=== PATIENT | female | born 1980 | race African-American/Black ===

== ENCOUNTER 2022-07-15 13:16 | Outpatient (CLI) | payer BC, SELFPAY ==
--- NOTE | ~2022-07-15 | US_ITS ---
Pelvic ultrasound. Clinical History: Heavy menses Technique: Realtime transabdominal and transvaginal scanning of the pelvis was performed. Color flow Doppler and Doppler spectral analysis were performed. Findings: The uterus is anteverted. The endometrial stripe has a thickness of 10 mm. Probable ill-de fined lower uterine segment fibroid measures 1.7 cm in diameter. The right ovary measures 2.0 x 1.7 x 3.0 cm. No significant right ovarian or adnexal mass is seen. The left ovary is not visualized. No significant left ovarian or adnexal mass is seen. There is no evidence of free fluid in the cul de sac. Impression: 1.7 cm fibroid, as detailed above. Reviewed, dictated and finalized at location . TAIN OPERATOR Impression: 1.7 cm fibroid, as detailed above.
== END 2022-07-15 13:17 ==
PROVIDERS: PCP Obstetrics & Gynecology; Visit Provider Obstetrics & Gynecology
DX: N92.0 Excessive and frequent menstruation with regular cycle (principal); D25.9 Leiomyoma of uterus, unspecified
CPT/HCPCS: 76830; 76856

== ENCOUNTER 2022-09-10 16:24 | Outpatient (CLI) | payer BC, SELFPAY ==
--- NOTE | ~2022-09-10 | MM_ITS ---
EXAMINATION: MM screening cathie BI w amaya HISTORY: Screening TECHNIQUE: Craniocaudal and mediolateral oblique 3-D tomosynthesis images were obtained and synthetic 2-D images were generated. CAD analysis was submitted and interpreted. COMPARISON: No prior mammogram is available for comparison at this institution. BREAST PARENCHYMAL COMPOSITION: There are scattered areas of fibroglandular density. FINDINGS: There is no evidence of suspicious mass, calcification, or architectural distortion to sugg est malignancy in either breast. There has been no suspicious interval change. IMPRESSION: 1. No mammographic evidence of malignancy. 2. Recommend routine screening mammography in one year. BI-RADS Category 1: Negative Reviewed, dictated and finalized at location A.
== END 2022-09-10 16:25 | disposition home or self-care (01) ==
LOC: ANHIMG 16:25
PROVIDERS: PCP Obstetrics & Gynecology; Visit Provider Obstetrics & Gynecology
DX: Z12.31 Encounter for screening mammogram for malignant neoplasm of breast (principal)
CPT/HCPCS: 77063; 77067

== ENCOUNTER 2022-09-29 17:03 | Emergency (ER) | payer BC, SELFPAY ==
[2022-09-29 17:07] VITALS: BP 164/91; PULSE 82; RESP 18; TEMP 36.5; O2SAT 100
--- NOTE | 2022-09-29 17:54 | ED.GENADULT ---
HPI - General Adult General Chief complaint: Wound/Laceration <PRIYA Weiss Last Filed: 09/30/22 00:40> Stated complaint: toe infection <PRIYA Weiss Last Filed: 09/30/22 00:40> Time Seen by Provider: 09/29/22 17:30 <PRIYA Weiss Last Filed: 09/30/22 00:40> Source: patient <PRIYA Weiss Last Filed: 09/30/22 00:40> Mode of arrival: ambulatory <PRIYA Weiss Last Filed: 09/30/22 00:40> Limitations: no limitations <PRIYA Weiss Last Filed: 09/30/22 00:40> History of Present Illness HPI narrative: This is a 42-year-old female presents to the ED with chief complaint of left big toe pain after an injury that happened a week ago. Patient dropped a wooden board on her toe. She has had some bruising and pain in the toe since then. She also notes that she was picking at the toenail and some fluid drained out. Concerned because she was hearing some cracking. She states she was last seen for this and has not had an x-ray. Denies fevers, chills, numbness, weakness. <PRIYA Weiss Last Filed: 09/30/22 00:40> Related Data Allergies/adverse reactions: Allergies Allergy/AdvReac Type Severity Reaction Status Date / Time shellfish derived Allergy Severe TONGUE Verified 07/01/22 13:13 SWELLS,ITCHING hydrocodone AdvReac Intermediate Vomiting Verified 07/01/22 13:13 DOGS Allergy Mild ITCHING Uncoded 07/01/22 13:13 AND HIVES CATS Allergy Unknown ITCHING Uncoded 07/01/22 13:13 <PRIYA Weiss Last Filed: 09/30/22 00:40> Review of Systems Review of Systems: CONSTITUTIONAL: Denies fever, chills, or sweats. SKIN: Denies rash or itching. MUSCULOSKELETAL: Denies back pain, joint pain, or myalgia. NEUROLOGIC: Denies headache, numbness, dizziness, or weakness. <Nik Hernandez PA-C - Last Filed: 09/30/22 00:40> PMFSH Past Medical History Medical History: Medical History History of chlamydia <Nik Hernandez PA-C - Last Filed: 09/30/22 00:40> Surgical History Surgical History: Surgical History History of 3 sections History of surgery of uterus UFE Tubal ligation status <Nik Hernandez PA-C - Last Filed: 09/30/22 00:40> Social History Social History: Social History Smoking status: Never smoker Alcohol intake: current Substance use: never Substance use type: does not use Lack of Transportation: No Lack of Food: Never True Current Housing: I Have Housing Concerned About Future Housing: No Difficulty Paying Gas/Electric Bills: No Difficulty Paying for Meds: No Currently Unemployed: No Education: Associate Degree Difficulty w/ Childcare or Family Care: No <Nik Hernandez PA-C - Last Filed: 09/30/22 00:40> Exam Narrative: GENERAL: Well-appearing, well-nourished, and in no acute distress. HEAD: Normocephalic, atraumatic. EXTREMITIES: LLE: L great toes with minor medial nail damage. Mild ecchymosis underneath the nail. No hematomas present. Serous fluid draining from the nail. RLE: Benign MSK exam is otherwise benign. Normal range of motion. No edema. Ambulatory SKIN: Warm, dry, no rash. NEURO: Alert and oriented x3. No focal deficits. <Nik Hernandez PA-C - Last Filed: 09/30/22 00:40> Course PCB DESIGN ENGINEER/PA Physician Supervision For this patient encounter, I reviewed the PCB DESIGN ENGINEER or PA documentation, treatment plan, and medical decision making and I had [id number] time with this patient. I performed all aspects of the MDM as documented. <Ann Paez MD - Last Filed: 10/04/22 21:08> Vital Signs Vital signs: Vital Signs Temperature 97.7 F 09/29/22 17:07 Pulse Rate 82 09/29/22 17:07 Respiratory Rate 18 09/29/22 17:07 Blood Pressure 164/91 H 09/07
--- NOTE | 2022-09-29 18:13 | PC.NURSE ---
pt left before receiving discharge paperwork.
== END 2022-09-29 18:22 | disposition home or self-care (01) ==
LOC: ANHED 18:17
PROVIDERS: Emergency Provider Physician Assistant; PCP Obstetrics & Gynecology
DX: S99.922A Unspecified injury of left foot, initial encounter (principal); W20.8XXA Other cause of strike by thrown, projected or falling object, initial encounter
CPT/HCPCS: 99282

== ENCOUNTER 2023-05-25 22:08 | Emergency (ER) | payer BC, SELFPAY ==
[2023-05-25 22:24] VITALS: BP 174/91; PULSE 69; RESP 18; TEMP 36.4; O2SAT 100
== END 2023-05-25 22:30 | disposition left against medical advice (07) ==
PROVIDERS: PCP Obstetrics & Gynecology
DX: R51.9 Headache, unspecified (principal)
CPT/HCPCS: 99199

== ENCOUNTER 2024-01-21 19:15 | Emergency (ER) | payer SELFPAY ==
--- NOTE | ~2024-01-21 | XR_ITS ---
EXAMINATION: XR chest 2V DATE: 01/21/2024 19:45 INDICATION: Chest pain and leg swelling TECHNIQUE: PA and lateral views of the chest were obtained. COMPARISON: None FINDINGS: The lungs are clear with no focal airspace opacities, pulmonary edema, pleural effusion or pneumothor ax. The cardiomediastinal silhouette is normal. Visualized bones and soft tissues are unremarkable. IMPRESSION: 1. No acute cardiopulmonary disease. Reviewed, dictated and finalized at location A.
--- NOTE | 2024-01-21 19:23 | ECG_ITS ---
Test Date: 2024-01-21 19:26:27 Measurements Intervals [place] Rate: 83 P: 44 CO: 180 QRS: 43 QRSD: 90 T: 0 QT: 365 QTc: 430 Interpretive Statements SINUS RHYTHM NONSPECIFIC ST AND T-WAVE ABNORMALITY ABNORMAL ECG No previous ECG available for comparison Electronically Signed On 01-22-2024 14:54:17 CDT by Carlito Mccullough M.D.
--- NOTE | 2024-01-21 19:24 | ED.CHESTPAIN ---
HPI - Chest Pain General Chief Complaint: Chest Pain Stated Complaint: CP, leg swelling Time Seen by Provider: 01/21/24 19:21 Source: patient Mode of arrival: ambulatory Limitations: no limitations History of Present Illness HPI narrative: Patient presents with chest pain starting approximately 3:00 p.m.. It is not associated with any shortness of breath, nausea, vomiting, diaphoresis. She states this has never happened before. She has noticed some subjective bilateral lower extremities swelling in her ankles and feet since Thursday. She is intermittently also been experience some lightheadedness and headache and blurred vision. She thought this might be related to the fact that her amlodipine manufacture changed but otherwise there has not been a change in dose. She did not take her medication today. Other than a diagnosis of hypertension she denies any diagnosis of hyperlipidemia, diabetes mellitus, myocardial infarction, TIA/CVA. No family history of myocardial infarction before the age of 65. She did have gestational diabetes with 2 of her pregnancies. She is a nonsmoker. Her primary care physician lead recently left her practice but she has been able to get new refills of her antihypertensive. No recent surgery or trauma. Does not follow with a business info consultant. Not on anticoagulation. Denies any fevers. No sick contacts. Last menstrual period was on 01/14/2024 and she denies any chance of . Patient has been coughing but denies any hemoptysis. Not on oral contraception. Related Data Home Medications Medication Instructions Recorded Confirmed amlodipine 10 mg tablet 10 mg PO DAILY 10/06/23 10/06/23 Allergies Allergy/AdvReac Type Severity Reaction Status Date / Time shellfish derived Allergy Severe TONGUE Verified 10/06/23 13:12 SWELLS,ITCHING hydrocodone AdvReac Intermediate Vomiting Verified 10/06/23 13:12 DOGS Allergy Mild ITCHING Uncoded 10/06/23 13:12 AND HIVES CATS Allergy Unknown ITCHING Uncoded 10/06/23 13:12 [facility] Past Medical History Medical History (Updated 01/21/24 @ 20:57 by Stephanie Pascal MD) Gestational diabetes History of chlamydia Hypertension Surgical History Surgical History History of 3 sections History of surgery of uterus UFE Tubal ligation status Family History Family History (Updated 01/21/24 @ 19:47 by Stephanie Pascal MD) Mother Hypertension Diabetes mellitus Hyperlipidemia Father Diabetes mellitus Social History Social History (Updated 01/21/24 @ 19:46 by Stephanie Pascal MD) Smoking status: Never smoker Alcohol intake: current Substance use: never Substance use type: does not use Lack of Transportation: No Lack of Food: Never True Current Housing: I Have Housing Concerned About Future Housing: No Difficulty Paying Gas/Electric Bills: No Difficulty Paying for Meds: No Currently Unemployed: No Education: Associate Degree Difficulty w/ Childcare or Family Care: No Living arrangements: with family Additional living arrangements comments: Children and ex- Occupation/Education: occupation Gender identity (if verbalized by the patient): Female Sexual Orientation (if Verbalized by the Patient): Straight or Heterosexual Spiritual care concerns: No Exam Narrative: GENERAL: Well-appearing, well-nourished, and in no acute distress. HEAD: Normocephalic, atraumatic. EYES: Non injected, non icteric ENT: Nares clear, no rhinorrhea or epistaxis. NECK: Supple. CHEST: Speaking in full sentences. No respiratory distress. Lungs clear to auscultation bilaterally HEART: Regular rate and rhythm. . ABDOMEN: Soft, nondistended. EXTREMITIES: Normal range of motion. No lower extremity edema. SKIN: Warm, dry, no rash. NEURO: No focal deficits. Alert and oriented x3. PSYCH: Normal mood and affect. Course Vital Signs Vital signs:
[2024-01-21 19:25] VITALS: BP 166/88; PULSE 81; RESP 12; TEMP 36.6; O2SAT 100
[2024-01-21 19:30] VITALS: PULSE 84; O2SAT 99
[2024-01-21 19:31] VITALS: O2SAT 99
[2024-01-21 19:42] LABS: Basophils Percent Auto 0.7 % (0.2-1.2); Eosinophils Absolute Auto 0.1 K/mm3 (0-0.3); Eosinophils Percent Auto 1.1 % (0-4.4); Hematocrit 36.6 % (37.0-47.0); Hemoglobin 11.6 g/dL (12.0-15.0); Immature Granulocyte Absolute 0.01 K/mm3 (0.00-0.031); Immature Granulocyte Percent A 0.2 % (0-0.5); Lymphocytes Absolute Auto 1.78 K/mm3 (0.9-3.2); Lymphocytes Percent Auto 39.7 % (18.3-44.2); Mean Corpuscular HGB Conc 31.7 g/dl (32-36); Mean Corpuscular Hemoglobin 26.4 pg (26-34); Mean Corpuscular Volume 83.2 fl (80-100); Mean Platelet Volume 10.2 fl (7.4-10.4); Monocytes Absolute Auto 0.5 K/mm3 (0.1-0.6); Monocytes Percent Auto 12.1 % (2.6-8.5); Neutrophils Absolute Auto 2.1 K/mm3 (1.3-6.7); Neutrophils Percent Auto 46.2 % (45.5-73.1); Platelet Count Result 300 k/mm3 (150-375); Red Cell Distribution Width 14.6 % (11.5-14.5); White Blood Count 4.5 K/mm3 (4.5-10.0)
[2024-01-21] MEDS: ASPIRIN 81 MG CHEWABLE TABLET 324 MG PO (19:46)
[2024-01-21 19:52] LABS: Alanine Aminotransferase 14 U/L (6-35); Albumin Level 4.4 g/dL (3.5-5.1); Alkaline Phosphatase 104 U/L (38-126); Anion Gap 9 mmol/L (4-12); Aspartate Amino Transferase 35 U/L (14-36); Bilirubin,Total 0.2 mg/dL (0.2-1.3); Blood Urea Nitrogen 8 mg/dL (7-17); Calcium 8.9 mg/dL (8.4-10.2); Carbon Dioxide 25 mmol/L (22-30); Chloride 102 mmol/L (98-107); Estimated CRCL calculation 118 ml/min; Estimated Glomerular Filt Rate > 60; Glucose 96 mg/dL (65-110); Lipase 82 U/L (23-300); Sodium 136 mmol/L (137-145)
[2024-01-21 19:54] LABS: Prothrombin Time 13.4 Seconds (11.1-14.7)
[2024-01-21 19:55] LABS: Partial Thromboplastin Time 27.1 Seconds (22.3-36.8)
[2024-01-21 20:01] LABS: NT Pro B Type Natriuretic Pept < 20 pg/mL (19.9-100)
[2024-01-21 20:04] LABS: Troponin I < 0.012 ng/mL (0.000-0.034)
[2024-01-21 20:08] LABS: D Dimer 0.38 ug/mL (<0.48)
[2024-01-21 20:22] LABS: BEDSIDEPREGUCG Negative
[2024-01-21 20:27] VITALS: BP 138/82; PULSE 80; RESP 18; O2SAT 100
[2024-01-21] MEDS: KETOROLAC 15 MG/ML VIAL (*BKC) IV PUSH (20:27)
[2024-01-21] MEDS: ACETAMINOPHEN 500 MG TABLET 1000 MG PO (20:27)
[2024-01-21 21:19] VITALS: BP 149/89; PULSE 79; RESP 14; O2SAT 100
== END 2024-01-21 21:21 | disposition home or self-care (01) ==
PROVIDERS: Emergency Provider Student in an Organized Health Care Education/Training Program
DX: D64.9 Anemia, unspecified (principal); R07.9 Chest pain, unspecified; R94.31 Abnormal electrocardiogram [ECG] [EKG]; I10 Essential (primary) hypertension; T50.905A Adverse effect of unspecified drugs, medicaments and biological substances, initial encounter
CPT/HCPCS: 36415; 71046; 80053; 81025; 83690; 83880; 84484; 85025; 85380; 85610; 85730; 93005; 96374; 99284; A9270; J1885